=== PATIENT | male | born 1945 | race Caucasian/White ===

== ENCOUNTER → 2018-11-22 | Outpatient (CLI) | payer OTHER, BC ==
[~2018-11-22] MED LIST: ACETAMINOPHEN325 M1 PO; ASPIR 8181 MG PO; ASPIRIN EC81 M1 PO; ASPIRIN325 PO; COLACE100 MG PO; DOXYCYCLINE 10100 MG PO; ENOXAPARIN40 MG/0.1 SUBQ; GLIPIZIDE 10 MG10 MG PO; GLUCOTROL5 MG PO; IBUPROFEN 600600 M1 PO; LIPITOR 20 MG T20 M1 PO; LOSARTAN POTAS100 MG PO; METFORMIN HCL500 MG PO; MIRALAX17 G1 PO; NICOTINE TRANSDE7 MG TRANSDERM; NOVOLOG100 UNIT/1 SUBQ; PLAVIX 75 MG TA75 M1 PO; PROBIOTIC1 EAC1 PO; SENOKOT-S1 TA1 PO; TOPROL XL50 MG PO; TRADJENTA5 MG PO; TYLENOL325 MG PO
== END ==
LOC: HYPER 06:57
DX: S91.302D Unspecified open wound, left foot, subsequent encounter (principal); E11.51 Type 2 diabetes mellitus with diabetic peripheral angiopathy without gangrene; I50.9 Heart failure, unspecified; I25.10 Atherosclerotic heart disease of native coronary artery without angina pectoris; E78.00 Pure hypercholesterolemia, unspecified; R21 Rash and other nonspecific skin eruption; Z87.891 Personal history of nicotine dependence; X58.XXXD Exposure to other specified factors, subsequent encounter